=== PATIENT | female | born 1950 | race Caucasian/White ===

== ENCOUNTER 2023-03-16 18:42 | Inpatient (IN) | payer OTHER ==
[~2023-03-16] VITALS: Ht 162.6 cm; Wt 66.2 kg
[2023-03-16] MEDS ORDERED: ATOR20TA PO (19:25)
[2023-03-16] MEDS ORDERED: LINA1TAB7 PO (19:25)
[2023-03-16] MEDS ORDERED: ALLO100T PO (19:25)
[2023-03-16] MEDS ORDERED: ASPI-1169 PO (19:25)
[2023-03-16] MEDS ORDERED: EMPA10TA PO (19:25)
[2023-03-16] MEDS ORDERED: AMLO10TA4 PO (19:25)
[2023-03-16] MEDS ORDERED: ESCI10TA PO (19:25)
[2023-03-16] MEDS ORDERED: DICL100G26 TP (19:25)
[2023-03-16] MEDS ORDERED: EZET10TA16 PO (19:25)
[2023-03-16] MEDS ORDERED: ENAL20TA18 PO (19:25)
[2023-03-16] MEDS ORDERED: DIPH25TA25 PO (19:25)
[2023-03-16] MEDS ORDERED: FOLI0.8T3 PO (19:25)
[2023-03-16] MEDS ORDERED: SUMA100T PO (19:25)
[2023-03-16] MEDS ORDERED: MECL-159 PO (19:25)
[2023-03-16] MEDS ORDERED: MELO-105 PO (19:25)
[2023-03-16] MEDS ORDERED: METF-442 PO (19:25)
[2023-03-16] MEDS ORDERED: ERGO500093 PO (19:25)
[2023-03-16] MEDS ORDERED: METO25TA4 PO (19:25)
[2023-03-16] MEDS ORDERED: LOSA100T31 PO (19:25)
[2023-03-16] MEDS ORDERED: FURO-144 PO (19:25)
[2023-03-16] MEDS ORDERED: CAMP85GE TP (19:25)
[2023-03-16] MEDS ORDERED: PANT40TA2 PO (19:25)
[2023-03-16 19:43] LABS: BASOPHILS # (AUTO) 0.1 K/uL (0.0-0.2); BASOPHILS % (AUTO) 1.5 % (0.0-2.0); EOSINOPHILS # (AUTO) 0.4 K/uL (0.0-0.7); EOSINOPHILS % (AUTO) 6.3 % (0.0-6.0); HEMATOCRIT 37 % (33-45); HEMOGLOBIN 12.5 g/dL (11.5-14.8); LYMPHOCYTES # (AUTO) 2.3 K/uL (0.8-4.8); LYMPHOCYTES % (AUTO) 39.6 % (20.0-44.0); MEAN CORPUSCULAR HEMOGLOBIN 32 PG (26.0-33.0); MEAN CORPUSCULAR HGB CONC 34 g/dl (31.0-36.0); MEAN CORPUSCULAR VOLUME 94 fL (82-100); MONOCYTES # (AUTO) 0.4 K/uL (0.1-1.30); MONOCYTES % (AUTO) 7.3 % (2.0-12.0); NEUTROPHILS # (AUTO) 2.7 K/uL (1.8-8.9); NEUTROPHILS % (AUTO) 45.3 % (43.0-81.0); PLATELET COUNT (AUTO) 198 K/uL (150-450); RED BLOOD CELL COUNT(AUTO) 3.92 MIL/uL (4.0-5.2); RED CELL DISTRIBUTION WIDTH 13.4 % (11.5-15.0); WHITE BLOOD COUNT (AUTO) 5.9 K/uL (4.3-11.0)
[2023-03-16 19:54] LABS: CALCIUM, SERUM 9.4 mg/dL (8.5-10.1); CARBON DIOXIDE 20 mmol/L (21-32); CHLORIDE 102 mmol/L (98-107); CREATININE 0.8 mg/dL (0.6-1.3); GLUCOSE 190 mg/dL (74-106); SODIUM SERUM 136 mmol/L (136-145); UREA NITROGEN, BLOOD 30 mg/dL (7-18)
[2023-03-16] MEDS ORDERED: ENOXAPARIN SODIUM 60 MG/0.6 ML DISP.SYRIN SQ ONE (22:00)
[2023-03-16] MEDS ORDERED: FUROSEMIDE 40 MG/4 ML VIAL IV ONE (22:00)
[2023-03-16] MEDS ORDERED: ASPIRIN 81 MG TAB.CHEW PO ONE (22:00)
[2023-03-16] MEDS ORDERED: HYDROCODONE/APAP 5/325MG TABLET PO PRN (23:30)
[2023-03-16] MEDS ORDERED: Z GUARD REMEDY 4 OZ OINT TP PRN (23:30)
[2023-03-16] MEDS ORDERED: ACETAMINOPHEN 325 MG TABLET PO PRN (23:30)
[2023-03-16] MEDS ORDERED: MAGNESIUM HYDROXIDE 30 ML UDC PO PRN (23:30)
[2023-03-16] MEDS ORDERED: ASPIRIN 81 MG TAB.CHEW PO SCH (23:30)
[2023-03-16] MEDS ORDERED: MAG HYDROX/AL HYDROX/SIMETH 30 ML UDC PO PRN (23:30)
[2023-03-16] MEDS ORDERED: ONDANSETRON HCL/PF 4 MG/2 ML VIAL IVP PRN (23:30)
[2023-03-16] MEDS ORDERED: ZOLPIDEM TARTRATE 5 MG TABLET PO PRN (23:30)
[2023-03-17 00:18] VITALS: O2SAT 95
[2023-03-17 02:14] VITALS: BP 132/48; TEMP 97.7; O2SAT 95
[2023-03-17 04:00] VITALS: BP 128/51; TEMP 98; O2SAT 95
[2023-03-17] MEDS ORDERED: CAMPHOR TP SCH (06:00)
[2023-03-17] MEDS ORDERED: DEXTROSE 50%-WATER 50 ML DISP.SYRIN IV PRN (06:00)
[2023-03-17] MEDS ORDERED: ERGOCALCIFEROL (VITAMIN D 2) 50,000 UNIT CAPSULE PO SCH (06:00)
[2023-03-17] MEDS ORDERED: *INSULIN REGULAR(HUMULIN R)HUM 100 UNIT/ML VIAL SQ PRN (06:00)
[2023-03-17] MEDS ORDERED: MECLIZINE HCL 25 MG TABLET PO PRN (06:00)
[2023-03-17] MEDS ORDERED: SUMATRIPTAN SUCCINATE 100 MG TABLET PO PRN (06:00)
[2023-03-17 06:26] LABS: BASOPHILS % (AUTO) 0.8 % (0.0-2.0); EOSINOPHILS # (AUTO) 0.4 K/uL (0.0-0.7); EOSINOPHILS % (AUTO) 7.3 % (0.0-6.0); HEMATOCRIT 37 % (33-45); HEMOGLOBIN 12.7 g/dL (11.5-14.8); LYMPHOCYTES # (AUTO) 2.4 K/uL (0.8-4.8); LYMPHOCYTES % (AUTO) 38.5 % (20.0-44.0); MEAN CORPUSCULAR HEMOGLOBIN 32 PG (26.0-33.0); MEAN CORPUSCULAR HGB CONC 34 g/dl (31.0-36.0); MEAN CORPUSCULAR VOLUME 94 fL (82-100); MONOCYTES # (AUTO) 0.6 K/uL (0.1-1.30); MONOCYTES % (AUTO) 9.4 % (2.0-12.0); NEUTROPHILS # (AUTO) 2.7 K/uL (1.8-8.9); PLATELET COUNT (AUTO) 185 K/uL (150-450); RED BLOOD CELL COUNT(AUTO) 3.98 MIL/uL (4.0-5.2); RED CELL DISTRIBUTION WIDTH 13.2 % (11.5-15.0); WHITE BLOOD COUNT (AUTO) 6.1 K/uL (4.3-11.0)
[2023-03-17] MEDS: BLOOD SUGAR DIAGNOSTIC 1 EACH STRIP VI SCH ×4 (06:35→21:27)
[2023-03-17] MEDS: PANTOPRAZOLE 40 MG TABLET.DR PO SCH (07:38)
[2023-03-17 07:46] LABS: CALCIUM, SERUM 9.7 mg/dL (8.5-10.1); CREATININE 0.8 mg/dL (0.6-1.3); MAGNESIUM 1.6 mg/dL (1.8-2.4); PHOSPHORUS 4.8 mg/dL (2.5-4.9); POTASSIUM 3.9 mmol/L (3.5-5.1)
[2023-03-17 08:18] VITALS: BP 128/69; TEMP 97.8; O2SAT 95
[2023-03-17] MEDS: FUROSEMIDE 40 MG/4 ML VIAL IV SCH (08:43)
[2023-03-17] MEDS: ENOXAPARIN SODIUM 60 MG/0.6 ML DISP.SYRIN SQ SCH ×2 (08:47→21:13)
[2023-03-17] MEDS ORDERED: Medication Not On Formulary EA (Empagliflozin (Jardiance) 10 MG) PO SCH (09:00)
[2023-03-17] MEDS: ASPIRIN 81 MG TAB.CHEW PO SCH (09:00)
[2023-03-17] MEDS: LOSARTAN POTASSIUM 50 MG TABLET PO SCH ×2 (09:00→17:00)
[2023-03-17] MEDS: EZETIMIBE 10 MG TABLET PO SCH (09:00)
[2023-03-17] MEDS: LISINOPRIL (20MG) 20 MG TABLET PO SCH ×2 (09:00→17:00)
[2023-03-17] MEDS: AMLODIPINE BESYLATE 10 MG TABLET PO SCH (09:00)
[2023-03-17] MEDS: MELOXICAM 7.5 MG TABLET PO SCH ×2 (09:00→17:00)
[2023-03-17] MEDS: diphenhydrAMINE HCL 25 MG CAPSULE PO SCH (09:00)
[2023-03-17] MEDS: METOPROLOL SUCCINATE 25 MG TAB.SR.24H PO SCH (09:00)
[2023-03-17] MEDS ORDERED: Medication Not On Formulary EA (Linagliptin/Metformin HCl (Jentadueto Xr 2.5 mg-1,000 mg PO SCH (09:00)
[2023-03-17] MEDS: ESCITALOPRAM OXALATE (10 MG) 10 MG TABLET PO SCH (09:00)
[2023-03-17] MEDS: ALLOPURINOL 100 MG TABLET PO SCH (09:00)
[2023-03-17] MEDS: FOLIC ACID 1 MG TABLET PO SCH (09:00)
[2023-03-17 09:05] LABS: THYROID STIMULATING HORMONE 2.322 uIU/mL (0.358-3.74)
[2023-03-17] MEDS: METFORMIN 500 MG TABLET PO SCH (10:00)
[2023-03-17] MEDS ORDERED: IOHEXOL-350 100 ML VIAL IV ONE (10:40)
[2023-03-17] MEDS ORDERED: CT SWABBABLE VALVE TRANS SET 1 EA INFUS.SET MC ONE (10:40)
[2023-03-17] MEDS ORDERED: IV NS 0.9% 250 ML IV ONE (10:41)
[2023-03-17] MEDS: INSULIN REGULAR, HUMAN 100 UNIT/ML 3 ML VIAL SQ PRN ×2 (12:07→17:51)
[2023-03-17] MEDS ORDERED: MAGNESIUM OXIDE 400 MG TABLET PO ONE (14:00)
[2023-03-17 16:13] VITALS: BP 116/56; TEMP 97.5; O2SAT 96
[2023-03-17 20:59] VITALS: BP 147/71; TEMP 98; O2SAT 94
[2023-03-17] MEDS ORDERED: ATORVASTATIN 10 MG TABLET PO SCH (22:00)
[2023-03-18 00:36] VITALS: BP 120/68; TEMP 97.7; O2SAT 94
[2023-03-18 04:32] VITALS: BP 108/64; TEMP 98.3; O2SAT 95
[2023-03-18 05:49] LABS: BASOPHILS % (AUTO) 0.7 % (0.0-2.0); EOSINOPHILS # (AUTO) 0.4 K/uL (0.0-0.7); EOSINOPHILS % (AUTO) 5.5 % (0.0-6.0); HEMATOCRIT 39 % (33-45); HEMOGLOBIN 13.1 g/dL (11.5-14.8); LYMPHOCYTES # (AUTO) 2.4 K/uL (0.8-4.8); LYMPHOCYTES % (AUTO) 37.2 % (20.0-44.0); MEAN CORPUSCULAR HEMOGLOBIN 31 PG (26.0-33.0); MEAN CORPUSCULAR HGB CONC 34 g/dl (31.0-36.0); MEAN CORPUSCULAR VOLUME 93 fL (82-100); MONOCYTES # (AUTO) 0.5 K/uL (0.1-1.30); MONOCYTES % (AUTO) 7.9 % (2.0-12.0); NEUTROPHILS # (AUTO) 3.1 K/uL (1.8-8.9); NEUTROPHILS % (AUTO) 48.7 % (43.0-81.0); PLATELET COUNT (AUTO) 187 K/uL (150-450); RED BLOOD CELL COUNT(AUTO) 4.21 MIL/uL (4.0-5.2); RED CELL DISTRIBUTION WIDTH 13.2 % (11.5-15.0); WHITE BLOOD COUNT (AUTO) 6.4 K/uL (4.3-11.0)
[2023-03-18] MEDS: BLOOD SUGAR DIAGNOSTIC 1 EACH STRIP VI SCH ×2 (06:10→12:11)
[2023-03-18] MEDS: INSULIN REGULAR, HUMAN 100 UNIT/ML 3 ML VIAL SQ PRN ×2 (06:11→12:13)
[2023-03-18 07:30] VITALS: BP 131/71; TEMP 97.9; O2SAT 96
[2023-03-18] MEDS: PANTOPRAZOLE 40 MG TABLET.DR PO SCH (07:49)
[2023-03-18] MEDS: FUROSEMIDE 40 MG/4 ML VIAL IV SCH (08:15)
[2023-03-18] MEDS: ESCITALOPRAM OXALATE (10 MG) 10 MG TABLET PO SCH (08:15)
[2023-03-18] MEDS: ASPIRIN 81 MG TAB.CHEW PO SCH (08:15)
[2023-03-18] MEDS: FOLIC ACID 1 MG TABLET PO SCH (08:15)
[2023-03-18] MEDS: diphenhydrAMINE HCL 25 MG CAPSULE PO SCH (08:15)
[2023-03-18] MEDS: LOSARTAN POTASSIUM 50 MG TABLET PO SCH (08:16)
[2023-03-18] MEDS: EZETIMIBE 10 MG TABLET PO SCH (08:16)
[2023-03-18] MEDS: ALLOPURINOL 100 MG TABLET PO SCH (08:16)
[2023-03-18 08:17] VITALS: BP 131/71
[2023-03-18] MEDS: LISINOPRIL (20MG) 20 MG TABLET PO SCH (08:17)
[2023-03-18] MEDS: AMLODIPINE BESYLATE 10 MG TABLET PO SCH (08:17)
[2023-03-18] MEDS: METOPROLOL SUCCINATE 25 MG TAB.SR.24H PO SCH (08:17)
[2023-03-18] MEDS: MELOXICAM 7.5 MG TABLET PO SCH (09:00)
[2023-03-18] MEDS: ENOXAPARIN SODIUM 60 MG/0.6 ML DISP.SYRIN SQ SCH (09:00)
[2023-03-18] MEDS: METFORMIN 500 MG TABLET PO SCH (09:00)
[2023-03-18] MEDS ORDERED: NITR0.4T48 SL (11:42)
[2023-03-18] MEDS ORDERED: APIX5TAB PO (11:42)
[2023-03-18] MEDS ORDERED: APIXABAN 5 MG TABLET PO SCH (12:00)
[2023-03-19] MEDS ORDERED: METFORMIN XR 500 MG TAB.SR.24H PO SCH (09:00)
[2023-03-19] MEDS ORDERED: LINAGLIPTIN 5 MG TABLET PO SCH (09:00)
[2023-03-21 07:06] LABS: *CARD ANTI-CARDIOLIPIN AB IgG <9 GPL U/mL (0-14); *CARD ANTI-CARDIOLIPIN AB IgM <9 MPL U/mL (0-12)
== END 2023-03-18 15:48 | disposition home or self-care (01) | DRG 197 ==
LOC: ER 18:44 → TELE 03-17 01:50
PROVIDERS: ADMIT Student in an Organized Health Care Education/Training Program; ATTEND Nurse Practitioner Family
DX: I82.411 Acute embolism and thrombosis of right femoral vein (principal); D68.69 Other thrombophilia; I20.0 Unstable angina; I11.0 Hypertensive heart disease with heart failure; E11.9 Type 2 diabetes mellitus without complications; I50.9 Heart failure, unspecified; E78.5 Hyperlipidemia, unspecified; Z79.82 Long term (current) use of aspirin; Z79.84 Long term (current) use of oral hypoglycemic drugs; Z86.718 Personal history of other venous thrombosis and embolism
CPT/HCPCS: 36415; 71045-TC; 80048-TC; 81240; 81241; 82607-TC; 82962-TC; 83090; 83735-TC; 83880; 84100-TC; 84443-TC; 84484-TC; 85025-TC; 85300; 85301; 85303; 85378-TC; 85613; 85670; 85705; 85732; 86147; 93307-TC; 93970-TC; G0378; J1650; J1815; J1940; J7050; Q0163; Q9967

== ENCOUNTER 2023-03-31 18:31 | Emergency (ER) | payer OTHER ==
[~2023-03-31] VITALS: Ht 160 cm; Wt 65.8 kg
[~2023-03-31 18:31] MED LIST: ALLO100T PO; AMLO10TA4 PO; APIX5TAB PO; ASPI-1169 PO; ATOR20TA PO; CAMP85GE TP; DICL100G26 TP; DIPH25TA25 PO; EMPA10TA PO; ENAL20TA18 PO; ERGO500093 PO; ESCI10TA PO; EZET10TA16 PO; FOLI0.8T3 PO; FURO-144 PO; LINA1TAB7 PO; LOSA100T31 PO; MECL-159 PO; METF-442 PO; METO25TA4 PO; NITR0.4T48 SL; PANT40TA2 PO; SUMA100T PO
[2023-03-31 18:38] VITALS: TEMP 98.1
[2023-03-31 19:30] LABS: BASOPHILS % (AUTO) 0.5 % (0.0-2.0); EOSINOPHILS # (AUTO) 0.4 K/uL (0.0-0.7); EOSINOPHILS % (AUTO) 5.4 % (0.0-6.0); HEMATOCRIT 36 % (33-45); HEMOGLOBIN 12.2 g/dL (11.5-14.8); LYMPHOCYTES # (AUTO) 2.3 K/uL (0.8-4.8); LYMPHOCYTES % (AUTO) 32.5 % (20.0-44.0); MEAN CORPUSCULAR HEMOGLOBIN 31 PG (26.0-33.0); MEAN CORPUSCULAR HGB CONC 34 g/dl (31.0-36.0); MEAN CORPUSCULAR VOLUME 93 fL (82-100); MONOCYTES # (AUTO) 0.4 K/uL (0.1-1.30); MONOCYTES % (AUTO) 5.2 % (2.0-12.0); NEUTROPHILS # (AUTO) 3.9 K/uL (1.8-8.9); NEUTROPHILS % (AUTO) 56.4 % (43.0-81.0); PLATELET COUNT (AUTO) 188 K/uL (150-450); RED BLOOD CELL COUNT(AUTO) 3.88 MIL/uL (4.0-5.2); RED CELL DISTRIBUTION WIDTH 13.2 % (11.5-15.0); WHITE BLOOD COUNT (AUTO) 6.9 K/uL (4.3-11.0)
[2023-03-31 19:44] LABS: INR 1.02 (0.91-1.10); PARTIAL THROMBOPLASTIN TIME 25.4 SEC (24.3-34.3); PROTHROMBIN TIME 10.7 SECS (9.2-11.1)
[2023-03-31 20:03] LABS: CALCIUM, SERUM 9.7 mg/dL (8.5-10.1); CARBON DIOXIDE 24 mmol/L (21-32); CHLORIDE 101 mmol/L (98-107); GLUCOSE 211 mg/dL (74-106); NT-PRO BNP 266 pg/mL (0-125); POTASSIUM 4.1 mmol/L (3.5-5.1); SODIUM SERUM 138 mmol/L (136-145); UREA NITROGEN, BLOOD 27 mg/dL (7-18)
[2023-03-31 20:23] VITALS: BP 114/58; O2SAT 98
== END 2023-03-31 20:24 | disposition home or self-care (01) ==
LOC: ER 18:59
DX: R07.89 Other chest pain (principal); R60.0 Localized edema; I10 Essential (primary) hypertension; E11.9 Type 2 diabetes mellitus without complications; Z98.890 Other specified postprocedural states; Z79.899 Other long term (current) drug therapy; Z79.82 Long term (current) use of aspirin
CPT/HCPCS: 36415; 71045-TC; 73564-TC; 80048-TC; 83880; 84484-TC; 85025-TC; 85730-TC; 93970-TC